=== PATIENT | female | born 1955 | race Caucasian/White ===

== ENCOUNTER 2023-01-29 01:09 | Emergency (ER) | payer MEDICARE, OTHER ==
[~2023-01-29] VITALS: Ht 157.5 cm; Wt 92.5 kg
[2023-01-29] MEDS ORDERED: FUROSEMIDE20 MG PO (01:23)
[2023-01-29] MEDS ORDERED: ELIQUIS2.5 MG PO (01:23)
[2023-01-29] MEDS ORDERED: PROZAC10 MG PO (01:24)
[2023-01-29] MEDS ORDERED: OMEPRAZOLE20 MG PO (01:24)
[2023-01-29] MEDS ORDERED: CYCLOBENZAPRINE10 MG PO (04:23)
[2023-01-29 04:40] VITALS: BP 125/72
--- NOTE | 2023-02-03 19:02 | EKG ---
[facility] [address] [place], [place] [address] Signed Normal sinus rhythm Nonspecific ST and T wave abnormality Prolonged QT Abnormal ECG No previous ECGs available Confirmed by HOA SANTOS MD ([id number]) on 02/03/2023 7:02:21 PM Electronically Signed By: HOA SANTOS 02/03/23 190 PATIENT NAME: AUBREY GOLDEN Electrocardiogram DATE OF : 57 PHYSICIAN: HOA SANTOS REPORT #: [id number] REPORT IS CONFIDENTIAL AND NOT TO BE RELEASED WITHOUT AUTHORIZATION
== END 2023-01-29 04:40 | disposition home or self-care (01) ==
LOC: ED 01:09
DX: R07.89 Other chest pain (principal); J44.9 Chronic obstructive pulmonary disease, unspecified; I50.9 Heart failure, unspecified; Z88.2 Allergy status to sulfonamides
CPT/HCPCS: 36415; 71045; 80053; 83735; 83880; 84484; 85025; 85379; 85610; 85730; 93005; 93010; 96374; 96375; 99285 25; A9270; J2270; J2405

== ENCOUNTER 2025-05-08 16:23 | Emergency (ER) | payer MEDICARE, OTHER ==
[~2025-05-08] VITALS: Ht 157.5 cm; Wt 98.2 kg
[~2025-05-08 16:23] MED LIST: CYCLOBENZAPRINE10 MG PO; ELIQUIS2.5 MG PO; FUROSEMIDE20 MG PO; OMEPRAZOLE20 MG PO; PROZAC10 MG PO
[2025-05-08] MEDS ORDERED: BACLOFEN5 MG PO (16:45)
[2025-05-08] MEDS ORDERED: NORTRIPTYLINE H10 MG PO (16:46)
[2025-05-08 16:57] LABS: BLOOD/HGB, URINE LARGE (Negative); KETONE, URINE NEGATIVE (Negative); LEUK ESTERASE, URINE MODERATE (negative); NITRITE, URINE POSITIVE (negative)
[2025-05-08 17:04] LABS: BACTERIA, URINE 1+ /hpf (negative); CASTS, URINE NONE SEEN \\lpf; CRYSTALS, URINE NONE SEEN (0-1+); EPITHELIAL CELLS, URINE SQUAMOUS 1+ /lpf (0-1+); REFLEX CULTURE, URINE Yes (No)
[2025-05-08] MEDS ORDERED: CEPHALEXIN MONOHYDRATE 500 MG CAP PO ONE (17:45)
[2025-05-08] MEDS ORDERED: CEPHALEXIN500 M1 PO (17:45)
[2025-05-08 17:54] VITALS: BP 153/83
== END 2025-05-08 17:50 | disposition home or self-care (01) ==
LOC: ED 16:23
PROVIDERS: Emergency Medicine
DX: N39.0 Urinary tract infection, site not specified (principal); J44.89 Other specified chronic obstructive pulmonary disease; Z79.899 Other long term (current) drug therapy; Z88.2 Allergy status to sulfonamides
CPT/HCPCS: 81001; 87088; 99283; A9270